=== PATIENT | female | born 1960 | race Caucasian/White ===

== ENCOUNTER → 2021-10-25 | Day surgery (SDC) | payer BC ==
[~2021-10-25] MED LIST: Lactated Ringers 1,000 ML IV SCH; Propofol 200 MG/20 ML SDV ONE
[2021-10-25 08:58] VITALS: BP 139/63; PULSE 73
--- NOTE | 2021-10-25 10:05 | OR ---
DATE OF OPERATION: 10/25/2021 PREOPERATIVE DIAGNOSIS: FAMILY HISTORY OF COLON CARCINOMA. POSTOPERATIVE DIAGNOSIS: FAMILY HISTORY OF COLON CARCINOMA. SURGEON: Dre Velazquez MD PROCEDURE: FULL-LENGTH COLONOSCOPY WITH SNARE POLYPECTOMY X1. ANESTHESIA: MAC. COMPLICATIONS: None. SPECIMEN: Small villous polyp, proximal ascending colon, approximately 4 mm to 5 mm. FINDINGS: 1. Full-length colonoscopy. 2. Villous polyp, proximal ascending colon. 3. Pandiverticulosis, moderate to severe. RECOMMENDATIONS: Followup colonoscopy in 5 years pending pathology report. INDICATIONS: The patient is a 60-year-old female sent by Lauren Edouard PA-C for surveillance colonoscopy. She has a family history of colon cancer. DESCRIPTION OF PROCEDURE: The patient was prepped and draped, placed in the left lateral decubitus position. A lubricated Olympus colonoscope was inserted and easily advanced to the cecum. Direct visualization of ileocecal valve and appendiceal orifice was accomplished. The bowel prep was adequate. Upon withdrawal of the scope, cecal pouch appeared benign. In the proximal portion of the ascending colon, the patient had 4 mm to 5 mm villous polyp removed with a snare and suctioned into polyp trap #1. The rest of the ascending and transverse colon showed no polyps. The patient does have pandiverticular disease, quite severe in the sigmoid and actually prevalent throughout. The descending colon was benign throughout the rest of the sigmoid and rectosigmoid area. No other polyps, masses, ulceration, or bleeding sites were seen. There were no vascular abnormalities or signs of colitis. Rectal vault was unremarkable. Retroflexion showed no anal lesions. Air was suctioned. Scope removed without complications. KUNAL/JACINDA /[id number]
== END ==
LOC: CC.SDS 06:18
PROVIDERS: ATTEND Family Medicine
DX: Z12.11 Encounter for screening for malignant neoplasm of colon (principal); D12.2 Benign neoplasm of ascending colon; K57.30 Diverticulosis of large intestine without perforation or abscess without bleeding; E11.9 Type 2 diabetes mellitus without complications; E78.5 Hyperlipidemia, unspecified; I10 Essential (primary) hypertension; E03.9 Hypothyroidism, unspecified; M17.11 Unilateral primary osteoarthritis, right knee; Z79.82 Long term (current) use of aspirin; Z79.899 Other long term (current) drug therapy; Z79.890 Hormone replacement therapy; Z80.0 Family history of malignant neoplasm of digestive organs; Z87.891 Personal history of nicotine dependence; Z79.84 Long term (current) use of oral hypoglycemic drugs; Z98.890 Other specified postprocedural states
CPT/HCPCS: 45385; J2704; J7120